=== PATIENT | male | born 2000 | race Caucasian/White ===

== ENCOUNTER 2020-06-01 22:26 | Emergency (ER) | payer SELFPAY ==
[~2020-06-01] VITALS: Ht 180.3 cm; Wt 81.6 kg
[2020-06-01 22:45] VITALS: BP 130/74
[2020-06-02 00:25] VITALS: BP 130/74
--- NOTE | 2020-06-02 00:25 | NUR ---
PT NAME CALLED X 3 IN LOBBY AND X 3 OUTSIDE - PER SECURITY PT JUST LEFT.
--- NOTE | 2020-06-02 00:29 | NUR ---
PATIENT LEFT WITHOUT BEING SEEN BY DR. CISNEROS. NO FURTHER CARE PROVIDED FOR PATIENT.
== END 2020-06-02 00:25 | disposition left against medical advice (07) ==
LOC: MED 22:26
DX: R53.1 Weakness (principal); Z53.21 Procedure and treatment not carried out due to patient leaving prior to being seen by health care provider

== ENCOUNTER 2023-01-07 13:07 | Emergency (ER) | payer MEDICAID ==
[~2023-01-07] VITALS: Ht 180.3 cm; Wt 80.7 kg
[2023-01-07 13:12] VITALS: BP 109/85; PULSE 112; RESP 22; TEMP 98.3; O2SAT 99
--- NOTE | 2023-01-07 13:22 | NUR ---
AMB. TO BED 5
[2023-01-07] MEDS ORDERED: ONDANSETRON 4 MG ODT PO ONE ×2 (13:35→15:05)
[2023-01-07] MEDS ORDERED: buprenorphine HCL 2 MG sublingual tab SL ONE (13:35)
--- NOTE | 2023-01-07 13:51 | NUR ---
C/O NAUSEA, POSS WITHDRAWL SX FR [facility], MEDS GIVEN ORDERED
[2023-01-07 14:05] VITALS: O2SAT 99
[2023-01-07] MEDS ORDERED: BUPR1TAB45 SL (14:24)
[2023-01-07] MEDS ORDERED: NALO4SPR NS (14:24)
--- NOTE | 2023-01-07 14:32 | NUR ---
pt w/ new nausea onset. MADE AWARE
[2023-01-07] MEDS ORDERED: ONDA-188 PO (15:59)
[2023-01-07 16:04] VITALS: BP 129/85; PULSE 81; RESP 14; TEMP 98.3; O2SAT 99
--- NOTE | 2023-01-07 16:04 | NUR ---
Patient discharged with v/s stable. Written and verbal after care instructions FOR OPIOID USE DISORDER given and explained. Patient alert, oriented and verbalized understanding of instructions. Ambulatory with by parent. All questions addressed prior to discharge. ID band removed. Patient advised to follow up with PMD. Rx of NARCAN AND NALOXONE given. Opportunity to ask questions provided and answered. SUBSTANCE ABUSE RESOURCE PACKET PROVIDED
--- NOTE | 2023-01-07 16:38 | NUR ---
The patient's care was reviewed and supervised by [facility], RN.
== END 2023-01-07 16:04 | disposition home or self-care (01) ==
LOC: MED 13:07
DX: F11.93 Opioid use, unspecified with withdrawal (principal); Z79.899 Other long term (current) drug therapy
CPT/HCPCS: 99283; Q0162